=== PATIENT | female | born 1955 | race Caucasian/White ===

== ENCOUNTER 2017-07-10 11:27 | Inpatient (IN) | payer MEDICAID, OTHER ==
[~2017-07-10] VITALS: Ht 170.2 cm; Wt 77.1 kg
[~2017-07-10 11:27] MED LIST: ALPR-475 PO; AMIT25TA PO; AMLO5TAB4 PO; CYCL-259 PO; ESCI10TA10 PO; LOSA100T6 PO; LOVA10TA PO; TRAZ100T15 PO
[2017-07-10] MEDS ORDERED: LIDOCAINE-MPF 1%, 2ML ONE (17:30)
[2017-07-10] MEDS ORDERED: CEFOTETAN PMX 2GM/50ML 50 ML ONE (17:50)
[2017-07-10] MEDS ORDERED: MIDAZOLAM 1 MG/ML, 2ML ONE (18:06)
[2017-07-10] MEDS ORDERED: SUFentanil 50 MCG/ML, 2ML ONE (18:06)
[2017-07-10] MEDS ORDERED: PHENYLEPHRINE 10 MG/ML ONE (18:06)
[2017-07-10] MEDS ORDERED: SUFentanil 50 MCG/ML, 5ML ONE (18:06)
[2017-07-10] MEDS ORDERED: SCOPOLAMINE 1MG PATCH TD ONE (18:26)
[2017-07-10] MEDS ORDERED: FENTANYL PF 250 MCG/5ML ONE ×2 (19:02)
[2017-07-10] MEDS ORDERED: PROPOFOL 10 MG/ML, 20ML ONE (19:08)
[2017-07-10] MEDS ORDERED: NEOSTIGMINE 1 MG/ML, 10ML ONE (19:08)
[2017-07-10] MEDS ORDERED: GLYCOPYRROLATE 0.2MG/1ML, 5ML ONE (19:08)
[2017-07-10] MEDS ORDERED: ONDANSETRON 2MG/ML, 2ML ONE (19:08)
[2017-07-10] MEDS ORDERED: ROCURONIUM 10 MG/ML ONE (19:08)
[2017-07-10] MEDS ORDERED: SUCCINYLCHOLINE 20 MG/ML, 10ML ONE (19:08)
[2017-07-10] MEDS ORDERED: CEFAZOLIN 1,000 MG ONE (19:08)
[2017-07-10] MEDS ORDERED: DEXAMETHASONE 4 MG/ML, 1ML ONE (19:08)
[2017-07-10] MEDS ORDERED: BUPIVACAINE/PF-EPI 0.5% 1:200K IM ONE (19:11)
[2017-07-10] MEDS ORDERED: ALBUTEROL SULFATE 2.5 MG/3 ML NPPB PRN (19:30)
[2017-07-10] MEDS ORDERED: METOPROLOL 1 MG/ML, 5ML IV PRN (19:30)
[2017-07-10] MEDS ORDERED: MEPERIDINE/PF 25MG/0.5ML IVPush PRN (19:30)
[2017-07-10] MEDS ORDERED: PROMETHAZINE 25 MG/ML, 1ML IV PRN (19:30)
[2017-07-10] MEDS ORDERED: ACETAMINOPHEN 325 MG TABLET PO PRN (19:30)
[2017-07-10] MEDS ORDERED: hydrALAzine 20 MG/ML, 1ML IV PRN (19:30)
[2017-07-10] MEDS ORDERED: morphine SULFATE 10 MG/ML, 1ML IV PRN (19:30)
[2017-07-10] MEDS ORDERED: OXYcodone 5 MG/5 ML ORAL.SOL UDC PO PRN (19:30)
[2017-07-10] MEDS ORDERED: SUGAMMADEX 200 MG/2 ML IVPush ONE (20:00)
[2017-07-10] MEDS ORDERED: ACETAMINOPHEN 650 MG/20.3 ML UDC ONE (20:03)
[2017-07-10] MEDS ORDERED: OXYcodone 5 MG/5 ML ORAL.SOL UDC ONE (20:03)
[2017-07-10] MEDS ORDERED: FENTANYL PF 100 MCG/2ML ONE (20:03)
[2017-07-10] MEDS ORDERED: BUPIVACAINE/PF 0.5% ONE (20:34)
[2017-07-10] MEDS ORDERED: EPINEPHRINE 1 MG/ML, 1ML ONE (20:34)
[2017-07-10] MEDS ORDERED: INDOCYANINE GREEN 25 MG VIAL ONE (20:34)
[2017-07-10] MEDS: FENTANYL PF 100 MCG/2ML IV PRN ×4 (20:39→20:58)
[2017-07-10] MEDS ORDERED: LABETALOL 5MG/ML, 20ML ONE (21:00)
[2017-07-10] MEDS ORDERED: morphine SULFATE 10 MG/ML, 1ML ONE (21:06)
[2017-07-10] MEDS: KETOROLAC 30 MG/1 ML IV PRN (22:00)
[2017-07-10] MEDS ORDERED: LORazepam 1MG TABLET PO PRN (22:00)
[2017-07-10] MEDS ORDERED: LORazepam 2 MG/ML, 1ML IV PRN (22:00)
[2017-07-10] MEDS ORDERED: ONDANSETRON 2MG/ML, 2ML IV PRN (22:00)
[2017-07-10] MEDS ORDERED: DIPHENHYDRAMINE 50 MG/ML, 1ML IV PRN (22:00)
[2017-07-10] MEDS: POTASSIUM CHLORIDE 20 MEQ in SODIUM CHLORIDE 0.9% 1,000 ML IV SCH (23:43)
[2017-07-11] MEDS: morphine SULFATE 10 MG/ML, 1ML IV PRN ×3 (00:09→15:15)
[2017-07-11] MEDS: OXYcodone/APAP 5/325MG TABLET PO PRN ×6 (00:33→21:35)
[2017-07-11] MEDS: DIPHENHYDRAMINE 25 MG CAPSULE PO PRN ×4 (02:48→21:37)
[2017-07-11 04:12] VITALS: BP 94/54
[2017-07-11] MEDS: KETOROLAC 30 MG/1 ML IV PRN (04:52)
[2017-07-11 05:33] LABS: HEMATOCRIT 39.9 % (34.6-47.8); HEMOGLOBIN 13.3 g/dL (11.7-16.4)
[2017-07-11 05:36] LABS: BLOOD UREA NITROGEN 13 mg/dL (7-18)
[2017-07-11 08:14] VITALS: BP 101/57
[2017-07-11] MEDS: ENOXAPARIN 40 MG/0.4 ML SQ SCH (09:11)
[2017-07-11 14:11] VITALS: BP 105/68
[2017-07-11] MEDS: POTASSIUM CHLORIDE 20 MEQ in SODIUM CHLORIDE 0.9% 1,000 ML IV SCH (18:06)
[2017-07-11 19:10] VITALS: BP 116/65
[2017-07-11] MEDS ORDERED: LOVASTATIN 40 MG TABLET PO SCH (21:00)
[2017-07-11] MEDS ORDERED: AMITRIPTYLINE 25 MG TABLET PO SCH (21:00)
[2017-07-11] MEDS: AMLODIPINE 5 MG TABLET PO SCH (21:37)
[2017-07-11] MEDS: CYCLOBENZAPRINE 10 MG TABLET PO SCH (21:37)
[2017-07-11] MEDS: AMITRIPTYLINE 25 MG TABLET PO SCH (21:37)
[2017-07-11] MEDS: TRAZODONE 100MG TABLET PO PRN (21:38)
[2017-07-11] MEDS: LOVASTATIN 20 MG PO SCH (21:40)
[2017-07-12] MEDS: morphine SULFATE 10 MG/ML, 1ML IV PRN ×3 (00:43→22:31)
[2017-07-12 01:52] VITALS: BP 100/64
[2017-07-12] MEDS: OXYcodone/APAP 5/325MG TABLET PO PRN ×5 (01:53→20:55)
[2017-07-12 05:41] LABS: BLOOD UREA NITROGEN 12 mg/dL (7-18)
[2017-07-12] MEDS: DIPHENHYDRAMINE 25 MG CAPSULE PO PRN ×2 (05:53→15:57)
[2017-07-12 05:54] LABS: HEMATOCRIT 36.7 % (34.6-47.8); HEMOGLOBIN 12.3 g/dL (11.7-16.4); WHITE BLOOD COUNT 9.6 x10^3/uL (3.4-10)
[2017-07-12] MEDS: CITALOPRAM 20 MG TABLET PO SCH (08:37)
[2017-07-12] MEDS: ENOXAPARIN 40 MG/0.4 ML SQ SCH (08:38)
[2017-07-12] MEDS: LOSARTAN 50MG TABLET PO SCH (08:38)
[2017-07-12] MEDS: CYCLOBENZAPRINE 10 MG TABLET PO SCH ×3 (08:40→22:31)
[2017-07-12] MEDS ORDERED: AMLODIPINE 5 MG TABLET PO SCH (09:00)
[2017-07-12 09:02] VITALS: BP 101/63
[2017-07-12] MEDS: POTASSIUM CHLORIDE 20 MEQ in SODIUM CHLORIDE 0.9% 1,000 ML IV SCH (14:30)
[2017-07-12 14:32] VITALS: BP 101/63
[2017-07-12] MEDS ORDERED: CALCIUM CARBONATE 500 MG TAB.CHEW PO PRN (17:00)
[2017-07-12] MEDS: OMEPRAZOLE 20 MG CAPSULE.DR PO SCH (17:38)
[2017-07-12 18:29] VITALS: BP 120/76
[2017-07-12] MEDS: LOVASTATIN 20 MG PO SCH (22:30)
[2017-07-12] MEDS: AMLODIPINE 5 MG TABLET PO SCH (22:31)
[2017-07-12] MEDS: TRAZODONE 100MG TABLET PO PRN (23:34)
[2017-07-12] MEDS: AMITRIPTYLINE 25 MG TABLET PO SCH (23:34)
[2017-07-13 00:48] VITALS: BP 103/66
[2017-07-13] MEDS: DIPHENHYDRAMINE 25 MG CAPSULE PO PRN ×2 (02:05→10:37)
[2017-07-13] MEDS: OXYcodone/APAP 5/325MG TABLET PO PRN ×3 (02:06→10:37)
[2017-07-13 05:48] LABS: HEMATOCRIT 35.5 % (34.6-47.8); WHITE BLOOD COUNT 8.1 x10^3/uL (3.4-10)
[2017-07-13 06:01] LABS: BLOOD UREA NITROGEN 14 mg/dL (7-18)
[2017-07-13 08:04] VITALS: BP 117/72
[2017-07-13] MEDS: CITALOPRAM 20 MG TABLET PO SCH (08:29)
[2017-07-13] MEDS: CYCLOBENZAPRINE 10 MG TABLET PO SCH (08:30)
[2017-07-13] MEDS: OMEPRAZOLE 20 MG CAPSULE.DR PO SCH (08:30)
[2017-07-13] MEDS: LOSARTAN 50MG TABLET PO SCH (08:30)
[2017-07-13] MEDS: ENOXAPARIN 40 MG/0.4 ML SQ SCH (08:30)
[2017-07-13] MEDS ORDERED: OXYC-302 PO (09:50)
[2017-07-13] MEDS ORDERED: POLY17PO5 PO (09:51)
[2017-07-13] MEDS: POTASSIUM CHLORIDE 20 MEQ in SODIUM CHLORIDE 0.9% 1,000 ML IV SCH (10:38)
[2017-07-13 13:05] VITALS: BP 121/78
== END 2017-07-13 13:15 | disposition home or self-care (01) | DRG 333 ==
LOC: 4NOR 16:21
PROVIDERS: ADMIT Colon & Rectal Surgery; ATTEND Colon & Rectal Surgery
PROC: 0DTP4ZZ Resection of Rectum, Percutaneous Endoscopic Approach (ICD-10-PCS; principal; 2017-07-10 13:30)
DX: K57.92 Diverticulitis of intestine, part unspecified, without perforation or abscess without bleeding (principal); N82.3 Fistula of vagina to large intestine; I10 Essential (primary) hypertension; Z96.651 Presence of right artificial knee joint; Z98.1 Arthrodesis status
CPT/HCPCS: 36415; 80048; 82040; 83735; 85025; 88307; J0171; J0690; J1100; J1650; J1885; J2250; J2405; J2704; J2710; J3010; J3480; J3490; J0330; J2270; J2370; J7030; Q0163; S0074